=== PATIENT | male | born 1990 | race African-American/Black ===

== ENCOUNTER 2018-07-15 13:49 | Emergency (ER) | payer OTHER ==
[~2018-07-15] VITALS: Ht 170.2 cm; Wt 81.7 kg
[~2018-07-15 13:49] MED LIST: FLOMAX0.4 MG PO; HYDROCODONE-AP1 EAC6 PO; ONDANSETRON HCL4 M2 PO
[2018-07-15] MEDS ORDERED: BACTRIM DS TAB1 EACH PO (14:58)
== END 2018-07-15 15:09 | disposition home or self-care (01) ==
LOC: ER 13:49
DX: L02.412 Cutaneous abscess of left axilla (principal)

== ENCOUNTER 2018-11-04 14:17 | Emergency (ER) | payer BC, OTHER ==
[~2018-11-04] VITALS: Ht 172.7 cm; Wt 84.4 kg
[~2018-11-04 14:17] MED LIST changes: +BACTRIM DS TAB1 EACH PO
[2018-11-04 14:34] LABS: URINE BILIRUBIN NEGATIVE (Negative); URINE BLOOD NEGATIVE (Negative); URINE CLARITY CLEAR; URINE COLOR YELLOW; URINE GLUCOSE-RANDOM* NEGATIVE (Negative); URINE KETONES NEGATIVE (Negative); URINE LEUKOCYTES-REFLEX NEGATIVE (Negative); URINE NITRITE-REFLEX NEGATIVE (Negative); URINE PROTEIN (DIPSTICK) NEGATIVE (Negative); URINE SPECIFIC GRAVITY >= 1.030 (1.005-1.035); URINE UROBILINOGEN 0.2 E.U./dl (0.2-1.0)
[2018-11-04 18:10] VITALS: BP 146/68
== END 2018-11-04 16:35 | disposition home or self-care (01) ==
LOC: ER 14:17
PROVIDERS: Physician Assistant
DX: R30.0 Dysuria (principal); R36.9 Urethral discharge, unspecified; Z11.3 Encounter for screening for infections with a predominantly sexual mode of transmission; Z87.442 Personal history of urinary calculi